=== PATIENT | male | born 1955 | race Caucasian/White ===

== ENCOUNTER 2017-07-18 18:40 | Observation (INO) | payer BC ==
--- NOTE | 2017-07-18 19:08 | RAD ---
FRONTAL VIEW CHEST: INDICATIONS: Chest pain. COMPARISON: None. FINDINGS: There is reticulonodular density at the lateral left mid to lower lung zone. There is ectasia of the thoracic aorta. The cardiac silhouette is at the upper limits of normal in size. Osseous degenerat cameron change is present. There is no pleural effusion or pneumothorax. IMPRESSION: Reticulonodular density at the lateral left mid to inferior lung zone. This may relate to an area of atelectasis or scar. The possibility of a small underlying nodule cannot be entirely excluded. The refore, recommend four to six week follow-up two view chest series to confirm resolution. POS: TAY
[2017-07-18 19:14] LABS: #Basophils 0.1 thou/uL (0.0-0.2); #Eosinphils 0.1 thou/uL (0.0-0.7); #Lymphocytes 2.2 thou/uL (1.20-3.40); #Neutrophils 5.4 thou/uL (1.40-6.50); %Basophils 0.6 % (0.0-1.0); %Lymphocytes 25.1 % (21.0-51.0); %Monocytes 11.8 % (0.0-10.0); %Neutrophils 61.6 % (42.0-75.0); Hemoglobin 15.2 g/dL (14.0-18.0); Mean Corpuscular HGB CONC 34.7 g/dL (32.0-36.0); Mean Corpuscular Volume 92.3 fl (80.0-94.0); Mean Platelet Volume 7.1 fL (7.4-10.4); Platelet Count 213 thou/uL (130-400); RBC Distribution Width 11.8 % (11.5-14.5); Red Blood Cell (RBC) Count 4.76 mill/uL (4.70-6.10); White Blood Cell (WBC) Count 8.7 thou/uL (4.8-10.8)
[2017-07-18 19:33] LABS: ALT (SGPT) 17 U/L (8-55); AST (SGOT) 17 U/L (5-34); Albumin 4.4 g/dL (3.4-4.8); Alkaline Phosphatase 78 U/L (40-150); Anion Gap 14 mmol/L (10-20); BUN (Urea Nitrogen) 32 mg/dL (8.4-25.7); Bilirubin, Total 1.4 mg/dL (0.2-1.2); CK (CPK) 39 U/L (30-200); Calc. Creatinine Clearance 0 mL/min (70-130); Calcium 9.8 mg/dL (7.8-10.44); Carbon Dioxide 27 mmol/L (23-31); Chloride 103 mmol/L (98-107); Estimated GFR-MDRD 33; Globulin 3.4 g/dL (2.4-3.5); Glucose 114 mg/dL (80-115); Potassium 4.1 mmol/L (3.5-5.1); Protein, Total 7.8 g/dL (5.8-8.1); Sodium 140 mmol/L (136-145)
[2017-07-18 19:37] LABS: CKMB 0.7 ng/mL (0-6.6); Troponin I Less than 0.010 ng/mL (< 0.028)
[2017-07-18] MEDS ORDERED: Acetaminophen 325 MG TAB ONE (22:02)
[2017-07-18] MEDS ORDERED: Azithromycin 500 MG VIAL ONE (22:15)
[2017-07-18] MEDS ORDERED: Acetaminophen 325 MG TAB PO PRN (22:44)
[2017-07-18 23:34] LABS: Troponin I Less than 0.010 ng/mL (< 0.028)
[2017-07-19] MEDS ORDERED: Bisacodyl 5 MG TAB PO PRN (01:37)
[2017-07-19] MEDS ORDERED: Bisacodyl 10 MG SUPP PR PRN (01:37)
[2017-07-19] MEDS ORDERED: Senokot 8.6 MG TAB PO PRN (01:37)
[2017-07-19] MEDS: Sodium Chloride 0.9% 1,000 ML IV SCH ×3 (01:53→23:10)
[2017-07-19 02:20] LABS: #Basophils 0.1 thou/uL (0.0-0.2); #Eosinphils 0.1 thou/uL (0.0-0.7); #Lymphocytes 2.5 thou/uL (1.20-3.40); #Monocytes 0.9 thou/uL (0.11-0.59); #Neutrophils 4.7 thou/uL (1.40-6.50); %Basophils 0.7 % (0.0-1.0); %Eosinophils 1.6 % (0.0-10.0); %Lymphocytes 30.4 % (21.0-51.0); %Monocytes 10.7 % (0.0-10.0); %Neutrophils 56.5 % (42.0-75.0); Hemoglobin 14.6 g/dL (14.0-18.0); Mean Corpuscular HGB CONC 34.4 g/dL (32.0-36.0); Mean Corpuscular Hemoglobin 31.8 pg (27.0-31.0); Mean Corpuscular Volume 92.6 fl (80.0-94.0); Mean Platelet Volume 6.8 fL (7.4-10.4); Platelet Count 201 thou/uL (130-400); RBC Distribution Width 11.7 % (11.5-14.5); Red Blood Cell (RBC) Count 4.58 mill/uL (4.70-6.10); White Blood Cell (WBC) Count 8.2 thou/uL (4.8-10.8)
[2017-07-19 02:40] LABS: Troponin I Less than 0.010 ng/mL (< 0.028)
[2017-07-19 03:01] LABS: Anion Gap 11 mmol/L (10-20); BUN (Urea Nitrogen) 34 mg/dL (8.4-25.7); Calc. Creatinine Clearance 51 mL/min (70-130); Calcium 9.3 mg/dL (7.8-10.44); Carbon Dioxide 25 mmol/L (23-31); Cardiac Risk 3.6 (Less than 4.5); Chloride 108 mmol/L (98-107); Cholesterol 182 mg/dl (< 200 Desired); Estimated GFR-MDRD 41; Glucose 103 mg/dL (80-115); HDL Cholesterol 51 mg/dL (>60 Neg Risk); LDL Cholesterol, Calculated 114 mg/dL; Potassium 4.1 mmol/L (3.5-5.1); Sodium 140 mmol/L (136-145); Triglycerides 87 mg/dL (Less than 150)
[2017-07-19] MEDS: Levothyroxine Sodium 100 MCG TAB PO SCH (05:07)
--- NOTE | 2017-07-19 05:35 | HP ---
PRIMARY CARE PHYSICIAN: Who is currently out of town. CHIEF COMPLAINT: Chest pain. HISTORY OF PRESENT ILLNESS: This is a 62-year-old male with a known history of hypertension, hyperlipidemia, hypothyroidism, and hepatitis who presents with a chief complaint of chest pain, this approximately 3 days in duration. He describes a pleuritic type of pain that was initially centrally to the left, which has subsequently radiated to the left chest wall quite far to the side and resides in the left lower chest wall. It appears to be intermittent in nature, not aggravated or alleviated by any positional changes. 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 REVIEW OF SYSTEMS: As per HPI. Constitutional: No recent fevers or chills or significant weight loss or gain. HEENT: No recent issues with lightheadedness , dizziness, headaches, or vision changes. Cardiovascular: As described in the HPI. Denies any left-sided arm numbness or tingling. Respiratory: No accompanying shortness of breath. No cough, no dyspnea with exertion. Gastrointestinal: Denies any nausea, vomiting, abdominal pain, diarrhea, or constipation. Reports irritate appetite. Genitourinary: Denies any dysuria or changes in urinary color, quantity or odor. Musculoskeletal: No new myalgias or arthralgias. Remainder of the review of systems otherwise negative. PAST MEDICAL HISTORY: As per HPI above includes; 1. Hypertension. 2. Hyperlipidemia. 3. Hypothyroidism. 4. Gastroesophageal reflux disease. 5. Prior history of asthma. PAST SURGICAL HISTORY: 1. Status post hernia repair 2. Status post right ankle surgery. HOME MEDICATIONS: As per HPI. The patient takes atorvastatin, bisoprolol- hydrochlorothiazide, lovastatin, levothyroxine, Prilosec. Patient states that within the last few weeks, his PCP has increased his bisoprolol- hydrochlorothiazide in doubled dosing to his current everyday dose. Otherwise, denies any new crhl-fcx-cilxtyt medications, herbal medication, supplements, or vitamins. ALLERGIES: No known drug allergies. FAMILY HISTORY: Denies any known family history of cardiovascular disease. SOCIAL HISTORY: Occasionally, he drinks in most case, 2-3 drinks per day. No tobacco use. The patient wishes to be FULL CODE at this point in time. PHYSICAL EXAMINATION: GENERAL: The patient is awake, alert, appropriate, in no acute distress, lying in the hospital bed. HEENT: Normocephalic, atraumatic. Moist mucous membranes. Equal ocular motions are intact. CARDIOVASCULAR: S1, S2. No murmurs, rubs, or gallops. Pulses 2+ bilateral upper extremities and lower extremities, no pitting pedal edema. RESPIRATORY: Reasonable air movement. No conversational dyspnea. No wheezes, rales, or rhonchi. Clear to auscultation bilaterally. ABDOMEN: Positive bowel sounds, soft, nontender to palpation. MUSCULOSKELETAL: Moving all 4 extremities and able to self reposition in the bed without difficulty or assistance. LABORATORY DATA AND IMAGING: WBC 8.7, hemoglobin 15.2, hematocrit 43.9, platelets 213,000. D-dimer 0.64. Sodium 140, potassium 4.1, chloride 103, bicarb 27, BUN 32, creatinine 2.06, glucose 114, calcium 9.8. Total bilirubin is 1.4, AST 17, ALT 17, alkaline phosphatase 78, troponin less than 0.1 x2. Total protein 7.8, albumin 4.4, lipase 19. ASSESSMENT AND PLAN: A 62-year-old male presenting with a chief complaint of chest pain. 1. Chest pain, rule out for acute coronary syndrome as the patient has known risk factors including hypertension and hyperlipidemia. Serial troponin, the patient has already obtained 2. We will repeat for a third. Check a fasting lipid panel as well. Along with differential with an elevated D-dimer for the patient's chest pains, the possibility of a PE due to the patient's acute renal insufficiency, we will be unable to utilize dye in a CTA. So, we will check a ventilation perfusion scan when possible. The patient also endorses a musculoskeletal component of reproducible pain in the area where he describes. Follow up is ruled out as this could be a residual etiology of the patient's discomfort. 2. Acute renal insufficiency without a known history of renal disease. Wonder if perhaps this is related to over diuresis as the patient has been recently fishing and out in the heat. Additionally, on top of that his hydrochlorothiazide dosing has effectively been doubled. We will hold losartan and hydrochlorothiazide. Continue to closely monitor the patient's renal function. Encourage oral hydration at this point in time. 3. Hypothyroidism. Check a TSH and continue patient's home regimen. 4. Hyperlipidemia. Check a fasting lipid panel. We will continue patient on his home regimen. 5. Hypertension, appears to be stable. Thank you for asking me to care for the patient. Questions or concerns, contact me at [facility]. JAYCE
[2017-07-19] MEDS ORDERED: hydrALAZINE 20 MG/ML VIAL SLOW IVP PRN (07:43)
[2017-07-19] MEDS ORDERED: Sodium Chloride 0.65% Nasal 44 ML BOT EA NARE PRN (07:43)
[2017-07-19] MEDS ORDERED: Loratadine 10 MG TAB PO PRN (07:43)
[2017-07-19] MEDS ORDERED: Diabetic Tussin 200 MG/10 ML UDCUP PO PRN (07:43)
[2017-07-19] MEDS ORDERED: Ondansetron HCl/PF 4 MG/2 ML Vial IVP PRN (07:43)
[2017-07-19] MEDS ORDERED: Eucerin (Mineral Oil/Petrolatum,White) 30 gm Jar TOP PRN (07:43)
[2017-07-19] MEDS ORDERED: Mag-Al 1200 mg/1200 mg/30 ML UDCUP PO PRN (07:43)
[2017-07-19] MEDS ORDERED: Ondansetron ODT 4 MG TAB PO PRN (07:43)
[2017-07-19] MEDS ORDERED: Loperamide HCl 2 MG CAP PO PRN (07:43)
[2017-07-19] MEDS ORDERED: Temazepam 15 MG CAP PO PRN (07:43)
[2017-07-19] MEDS ORDERED: HYDROcodone/Acetaminophen 5/325 mg Tablet PO PRN (07:43)
[2017-07-19] MEDS ORDERED: Artificial Tears 18 DROP/0.9 ML EA EYE PRN (07:43)
[2017-07-19] MEDS ORDERED: Non-Formulary Item 1 EACH (Losartan Potassium [Cozaar] 100 MG) PO SCH (09:00)
[2017-07-19] MEDS ORDERED: Bisoprolol Fumarate/HCTZ 10 mg/6.25 mg Tablet PO SCH (09:00)
[2017-07-19] MEDS ORDERED: Enoxaparin Sodium 40 MG/0.4 ML SYRINGE SC SCH (09:00)
--- NOTE | 2017-07-19 09:38 | ULT ---
RENAL ULTRASOUND: HISTORY: Acute kidney insufficiency. COMPARISON: None. TECHNIQUE: Sagittal and transverse imaging of the kidneys is performed. FINDINGS: There is bilateral renal cortical thinning. Bilaterally, no hydronephrosis. The right kidney measur es 11.0 x 5.0 x 5.3 cm. The left kidney measures 11.3 x 6.6 x 5.9 cm. The urinary bladder is unremarkable with a prevoid volume of 123 mm. IMPRESSION: No hydronephrosis. POS: TAY
[2017-07-19] MEDS: Famotidine 20 MG TAB PO SCH (09:43)
[2017-07-19] MEDS: Bisoprolol Fumarate 5 MG TAB PO SCH (09:43)
[2017-07-19] MEDS: Atorvastatin Calcium 20 MG TAB PO SCH (09:43)
[2017-07-19] MEDS: Enoxaparin Sodium 30 MG/0.3 ML SYRINGE SC SCH (09:43)
--- NOTE | 2017-07-19 10:48 | NM ---
NUCLEAR MEDICINE VQ SCAN: HISTORY: Elevated D-Dimer. Evaluate for pulmonary embolism. COMPARISON: None. TECHNIQUE: The patient was administered 6 mCi of Xenon gas for ventilation imaging and 6.50 mCi of Technetium 99 m-MAA for perfusion imaging. FINDINGS: Ventilation images demonstrate diffuse uptake of the radiotracer, without significant retention. Perfusion images demonstrate homogeneous distribution of the radiotracer. There are no VQ mismatches. IMPRESSION: Normal exam. POS: TAY
--- NOTE | 2017-07-19 10:57 | PDOC.PN ---
- Subjective Encounter Start Date: 07/19/17 Encounter Start Time: 07:30 -: old records requested/rev Patient seen and examined for acute kidney failure, he has right side rib cage pain. No overnight events - Objective Resuscitation Status: Resuscitation Status FULL:Full Resuscitation MAR Reviewed: Yes Vital Signs & Weight: Vital Signs (12 hours) Temp Pulse Resp BP Pulse Ox 07/19/17 08:00 99.0 F 64 14 07/19/17 07:52 99.0 F 64 14 136/92 H 94 L 07/19/17 05:07 69 18 135/83 94 L 07/19/17 01:37 96 Weight Weight 174 lb 12.8 oz Result Diagrams: 07/19/17 02:07 07/19/17 02:07 Radiology Reviewed by me: Yes (US kidney, V/Q scan) EKG Reviewed by me: Yes (NSR) Phys Exam - Physical Examination Constitutional: NAD HEENT: PERRLA, moist MMs, sclera anicteric Neck: no JVD, supple Respiratory: no wheezing, no rales, no rhonchi Cardiovascular: RRR, no significant murmur, no rub Gastrointestinal: soft, non-tender, no distention, positive bowel sounds Musculoskeletal: no edema, pulses present Neurological: non-focal, normal sensation, moves all 4 limbs Psychiatric: normal affect, A&O x 3 Skin: no rash, normal turgor Dx/Plan (1) Acute kidney failure Status: Acute (2) Chest pain Code(s): R07.9 - CHEST PAIN, UNSPECIFIED Status: Acute (3) Dyslipidemia Code(s): E78.5 - HYPERLIPIDEMIA, UNSPECIFIED Status: Chronic (4) GERD (gastroesophageal reflux disease) Code(s): K21.9 - GASTRO-ESOPHAGEAL REFLUX DISEASE WITHOUT ESOPHAGITIS Status: Chronic (5) Hypertension Code(s): I10 - ESSENTIAL (PRIMARY) HYPERTENSION Status: Chronic (6) Hypothyroidism Code(s): E03.9 - HYPOTHYROIDISM, UNSPECIFIED Status: Chronic - Plan cont current plan of care * continue IVF today * repeat labs tomorrow. * his chest pain is musculoskeletal * medication reviewed as below * symptomatic treatment * will discharge tomorrow * send UA Review of Systems - Review of Systems Eyes: negative: Pain, Vision Change, Conjunctivae Inflammation, Eyelid Inflammation, Redness, Other ENT: negative: Ear Pain, Ear Discharge, Nose Pain, Nose Discharge, Nose Congestion, Mouth Pain, Mouth Swelling, Throat Pain, Throat Swelling, Other Respiratory: negative: Cough, Dry, Shortness of Breath, Hemoptysis, SOB with Excertion, Pleuritic Pain, Sputum, Wheezing Cardiovascular: chest pain. negative: palpitations, orthopnea, paroxysmal nocturnal dyspnea, edema, light headedness, other Gastrointestinal: negative: Nausea, Vomiting, Abdominal Pain, Diarrhea, Constipation, Melena, Hematochezia, Other Genitourinary: negative: Dysuria, Frequency, Incontinence, Hematuria, Retention , Other Musculoskeletal: negative: Neck Pain, Shoulder Pain, Arm Pain, Back Pain, Hand Pain, Leg Pain, Foot Pain, Other Skin: negative: Rash, Lesions, Joe, Bruising, Other - Medications/Allergies Allergies/Adverse Reactions: Allergies Allergy/AdvReac Type Severity Reaction Status Date / Time No Known Allergies Allergy Verified 07/18/17 23:07 Medications: Current Medications Hydrocodone Bitart/Acetaminophen ([place] 5/325) 1 tab PO Q4H PRN PRN Reason: Moderate Pain (4-6) Al Hydroxide/Mg Hydroxide (Maalox) 15 ml PO Q4H PRN PRN Reason: Heartburn or Indigestion Artificial Tears (Tears Naturale) 0 drop EA EYE PRN PRN PRN Reason: Dry Eyes Atorvastatin Calcium (Lipitor) 20 mg PO DAILY [facility] Last Admin: 07/19/17 09:43 Dose: 20 mg Bisacodyl (Dulcolax) 10 mg PO DAILYPRN PRN PRN Reason: Constipation Bisacodyl (Dulcolax) 10 mg ID Q24H PRN PRN Reason: Constipation Bisoprolol Fumarate (Zebeta) 5 mg PO DAILY [facility] Last Admin: 07/19/17 09:43 Dose: 5 mg Enoxaparin Sodium (Lovenox) 30 mg SC 0900 [facility] Last Admin: 07/19/17 09:43 Dose: 30 mg Famotidine (Pepcid) 20 mg PO DAILY [facility] Last Admin: 07/19/17 09:43 Dose: 20 mg Guaifenesin (Robitussin Sf) 200 mg PO Q4H PRN PRN Reason: Cough Hydralazine HCl (Apresoline) 10 mg SLOW IVP Q4H PRN PRN Reason: Systolic BP > 180 Sodium Chloride (Normal Saline 0.9%) 1,000 mls @ 100 mls/hr IV .Q10H [facility] Last Admin: 07/19/17 01:53 Dose: 1,000 mls Levothyroxine Sodium (Synthroid) 100 mcg PO 0600 [facility] Last Admin: 07/19/17 05:07 Dose: 100 mcg Loperamide HCl (Imodium) 2 mg PO PRN PRN PRN Reason: Diarrhea/Loose Stools Loratadine (Claritin) 10 mg PO DAILYPRN PRN PRN Reason: Sinus Symptoms Mineral Oil/White Petrolatum (Eucerin Cream) 0 gm TOP BIDPRN PRN PRN Reason: Dry Skin Ondansetron HCl (Zofran Odt) 4 mg PO Q6H PRN PRN Reason: Nausea/Vomiting Ondansetron HCl (Zofran) 4 mg IVP Q6H PRN PRN Reason: Nausea/Vomiting Pantoprazole Sodium (Protonix) 40 mg PO DAILY [facility] Last Admin: 07/19/17 09:43 Dose: 40 mg Senna (Senokot) 2 tab PO HSPRN PRN PRN Reason: Constipation Sodium Chloride ([place] Nasal [place] 0.65%) 0 ml EA NARE QIDPRN PRN PRN Reason: Nasal Congestion Temazepam (Restoril) 15 mg PO HSPRN PRN PRN Reason: Insomnia
[2017-07-19 11:37] LABS: Bilirubin Negative (Negative); Blood, Urine Small (Negative); Clarity CLEAR (Clear); Glucose, Urine (Dipstick) Negative (Negative); Leukocyte Negative (Negative); Nitrite Negative (Negative); Protein, Urine (Dipstick) Negative (Neg-Trace); Specific Gravity, Urine 1.015 (1.002-1.036); Urobilinogen 0.2 mg/dL (0.2-1.0); pH, Urine 5.5 (5.0-9.0)
[2017-07-19 11:41] LABS: Bacteria/HPF None Seen HPF (None Seen); Hyaline Casts/LPF 0-3 HYALINE CAST LPF (0-3 Hyaline); Pathc Cast-AUWi Flag 0.43 (0-2.49); RBC/HPF 0-3 HPF (0-3); Squamous Epithelial None Seen HPF (0-3); WBC/HPF 0-3 HPF (0-3)
[2017-07-19] MEDS: Acetaminophen 325 MG TAB PO PRN ×2 (18:42→23:54)
[2017-07-19] MEDS ORDERED: Simethicone Chewable 80 MG TAB PO PRN (23:46)
[2017-07-20] MEDS: Levothyroxine Sodium 100 MCG TAB PO SCH (04:19)
[2017-07-20 04:35] LABS: #Basophils 0.1 thou/uL (0.0-0.2); #Eosinphils 0.2 thou/uL (0.0-0.7); #Lymphocytes 3.5 thou/uL (1.20-3.40); #Monocytes 0.6 thou/uL (0.11-0.59); #Neutrophils 3.6 thou/uL (1.40-6.50); %Basophils 0.9 % (0.0-1.0); %Eosinophils 2.6 % (0.0-10.0); %Lymphocytes 43.7 % (21.0-51.0); %Monocytes 7.8 % (0.0-10.0); %Neutrophils 45.1 % (42.0-75.0); Hemoglobin 13.3 g/dL (14.0-18.0); Mean Corpuscular HGB CONC 34.1 g/dL (32.0-36.0); Mean Corpuscular Hemoglobin 31.8 pg (27.0-31.0); Mean Corpuscular Volume 93.2 fl (80.0-94.0); Mean Platelet Volume 6.6 fL (7.4-10.4); Platelet Count 206 thou/uL (130-400); RBC Distribution Width 11.4 % (11.5-14.5); Red Blood Cell (RBC) Count 4.18 mill/uL (4.70-6.10); White Blood Cell (WBC) Count 8.1 thou/uL (4.8-10.8)
[2017-07-20 04:56] LABS: Anion Gap 9 mmol/L (10-20); BUN (Urea Nitrogen) 21 mg/dL (8.4-25.7); Calc. Creatinine Clearance 66 mL/min (70-130); Calcium 8.7 mg/dL (7.8-10.44); Carbon Dioxide 27 mmol/L (23-31); Chloride 109 mmol/L (98-107); Estimated GFR-MDRD 55; Glucose 99 mg/dL (80-115); Potassium 4.7 mmol/L (3.5-5.1); Sodium 140 mmol/L (136-145)
[2017-07-20 08:00] VITALS: BP 151/86; TEMP 98.3
[2017-07-20] MEDS ORDERED: Lisinopril 2.5 MG TAB PO SCH (09:00)
[2017-07-20] MEDS ORDERED: Aspirin 81 mg Enteric Coated Tablet PO SCH (09:00)
[2017-07-20] MEDS ORDERED: Carvedilol 3.125 MG TAB PO SCH (09:00)
[2017-07-20] MEDS: Sodium Chloride 0.9% 1,000 ML IV SCH (09:18)
[2017-07-20] MEDS: Bisoprolol Fumarate 5 MG TAB PO SCH (09:31)
[2017-07-20] MEDS: Famotidine 20 MG TAB PO SCH (09:32)
[2017-07-20] MEDS: Atorvastatin Calcium 20 MG TAB PO SCH (09:32)
[2017-07-20] MEDS: Enoxaparin Sodium 30 MG/0.3 ML SYRINGE SC SCH (09:33)
--- NOTE | 2017-07-20 09:48 | PDOC.PN ---
- Subjective Encounter Start Date: 07/20/17 Encounter Start Time: 07:35 Patient seen and examined for acute kidney failure. No new complaints. No overnight events - Objective Resuscitation Status: Resuscitation Status FULL:Full Resuscitation MAR Reviewed: Yes Vital Signs & Weight: Vital Signs (12 hours) Temp Pulse Resp BP BP Pulse Ox 07/20/17 08:15 98.3 F 57 L 16 07/20/17 07:26 98.3 F 57 L 16 151/86 H 97 07/20/17 04:00 99.0 F 60 20 140/74 95 07/20/17 02:06 96 Weight Weight 174 lb 12.8 oz I&O: 07/19/17 07/20/17 07/21/17 06:59 06:59 06:59 Intake Total 2826 Output Total 1505 Balance 1321 Result Diagrams: 07/20/17 04:19 07/20/17 04:19 Radiology Reviewed by me: Yes (v/q scan normal) EKG Reviewed by me: Yes (nsr) Phys Exam - Physical Examination Constitutional: NAD HEENT: PERRLA, moist MMs, sclera anicteric Neck: no JVD, supple Respiratory: no wheezing, no rales, no rhonchi Cardiovascular: RRR, no significant murmur, no rub Gastrointestinal: soft, non-tender, no distention, positive bowel sounds Musculoskeletal: no edema, pulses present Neurological: non-focal, normal sensation, moves all 4 limbs Lymphatic: no nodes Psychiatric: normal affect, A&O x 3 Skin: no rash, normal turgor Dx/Plan (1) Acute kidney failure Status: Acute (2) Chest pain Code(s): R07.9 - CHEST PAIN, UNSPECIFIED Status: Acute Qualifiers: Chest pain type: other chest pain Qualified Code(s): R07.89 - Other chest pain; R07.8 - Other chest pain Comment: muskuloskeletal (3) Dyslipidemia Code(s): E78.5 - HYPERLIPIDEMIA, UNSPECIFIED Status: Chronic (4) GERD (gastroesophageal reflux disease) Code(s): K21.9 - GASTRO-ESOPHAGEAL REFLUX DISEASE WITHOUT ESOPHAGITIS Status: Chronic (5) Hypertension Code(s): I10 - ESSENTIAL (PRIMARY) HYPERTENSION Status: Chronic (6) Hypothyroidism Code(s): E03.9 - HYPOTHYROIDISM, UNSPECIFIED Status: Chronic (7) Combined systolic and diastolic cardiac dysfunction Code(s): I51.89 - OTHER ILL-DEFINED HEART DISEASES Status: Acute - Plan cont current plan of care * renal function improved * resume home meds and follow up with PCP * medication reviewed as below * symptomatic treatment * see discharge tamie. Review of Systems - Review of Systems ENT: negative: Ear Pain, Ear Discharge, Nose Pain, Nose Discharge, Nose Congestion, Mouth Pain, Mouth Swelling, Throat Pain, Throat Swelling, Other Respiratory: negative: Cough, Dry, Shortness of Breath, Hemoptysis, SOB with Excertion, Pleuritic Pain, Sputum, Wheezing Cardiovascular: negative: chest pain, palpitations, orthopnea, paroxysmal nocturnal dyspnea, edema, light headedness, other Gastrointestinal: negative: Nausea, Vomiting, Abdominal Pain, Diarrhea, Constipation, Melena, Hematochezia, Other Genitourinary: negative: Dysuria, Frequency, Incontinence, Hematuria, Retention , Other Musculoskeletal: negative: Neck Pain, Shoulder Pain, Arm Pain, Back Pain, Hand Pain, Leg Pain, Foot Pain, Other Skin: negative: Rash, Lesions, Joe, Bruising, Other - Medications/Allergies Allergies/Adverse Reactions: Allergies Allergy/AdvReac Type Severity Reaction Status Date / Time No Known Allergies Allergy Verified 07/18/17 23:07 Medications: Current Medications Acetaminophen (Tylenol) 650 mg PO Q4H PRN PRN Reason: Pain Last Admin: 07/19/17 23:54 Dose: 650 mg Hydrocodone Bitart/Acetaminophen ([place] 5/325) 1 tab PO Q4H PRN PRN Reason: Moderate Pain (4-6) Al Hydroxide/Mg Hydroxide (Maalox) 15 ml PO Q4H PRN PRN Reason: Heartburn or Indigestion Last Admin: 07/19/17 20:30 Dose: 15 ml Artificial Tears (Tears Naturale) 0 drop EA EYE PRN PRN PRN Reason: Dry Eyes Aspirin (Ecotrin) 81 mg PO DAILY [facility] Last Admin: 07/20/17 09:32 Dose: 81 mg Atorvastatin Calcium (Lipitor) 20 mg PO DAILY [facility] Last Admin: 07/20/17 09:32 Dose: 20 mg Bisacodyl (Dulcolax) 10 mg PO DAILYPRN PRN PRN Reason: Constipation Bisacodyl (Dulcolax) 10 mg SC Q24H PRN PRN Reason: Constipation Bisoprolol Fumarate (Zebeta) 5 mg PO DAILY [facility] Last Admin: 07/20/17 09:31 Dose: 5 mg Enoxaparin Sodium (Lovenox) 30 mg SC 0900 [facility] Last Admin: 07/20/17 09:33 Dose: Not Given Famotidine (Pepcid) 20 mg PO DAILY [facility] Last Admin: 07/20/17 09:32 Dose: 20 mg Guaifenesin (Robitussin Sf) 200 mg PO Q4H PRN PRN Reason: Cough Hydralazine HCl (Apresoline) 10 mg SLOW IVP Q4H PRN PRN Reason: Systolic BP > 180 Sodium Chloride (Normal Saline 0.9%) 1,000 mls @ 100 mls/hr IV .Q10H [facility] Last Admin: 07/20/17 09:18 Dose: Not Given Levothyroxine Sodium (Synthroid) 100 mcg PO 0600 [facility] Last Admin: 07/20/17 04:19 Dose: 100 mcg Loperamide HCl (Imodium) 2 mg PO PRN PRN PRN Reason: Diarrhea/Loose Stools Loratadine (Claritin) 10 mg PO DAILYPRN PRN PRN Reason: Sinus Symptoms Mineral Oil/White Petrolatum (Eucerin Cream) 0 gm TOP BIDPRN PRN PRN Reason: Dry Skin Ondansetron HCl (Zofran Odt) 4 mg PO Q6H PRN PRN Reason: Nausea/Vomiting Ondansetron HCl (Zofran) 4 mg IVP Q6H PRN PRN Reason: Nausea/Vomiting Pantoprazole Sodium (Protonix) 40 mg PO DAILY [facility] Last Admin: 07/20/17 09:32 Dose: 40 mg Senna (Senokot) 2 tab PO HSPRN PRN PRN Reason: Constipation Simethicone (Mylicon Chewable) 80 mg PO HSPRN PRN PRN Reason: GAS PAIN Last Admin: 07/19/17 23:55 Dose: 80 mg Sodium Chloride ([place] Nasal [place] 0.65%) 0 ml EA NARE QIDPRN PRN PRN Reason: Nasal Congestion Temazepam (Restoril) 15 mg PO HSPRN PRN PRN Reason: Insomnia
--- NOTE | 2017-07-20 10:56 | DIS ---
DATE OF ADMISSION: 07/18/2017 DATE OF DISCHARGE: 07/20/2017 PRIMARY CARE PHYSICIAN: [facility] call admission. DISCHARGE DISPOSITION: Home. PRIMARY DISCHARGE DIAGNOSES: Acute kidney failure, prerenal, improved; chest pain due to musculoskel etal etiology; combined systolic and diastolic dysfunction. SECONDARY DISCHARGE DIAGNOSES: Hypothyroidism, hypertension, gastroesophageal reflux disease, dyslip idemia. PRIMARY PROCEDURE AND OPERATION: None. RADIOLOGICAL INVESTIGATION: Chest x-ray normal. Ventilation perfusion scan, normal. Renal ultrasou nd was normal. Echocardiography showed EF 40%-45% and diastolic dysfunction. SIGNIFICANT LABORATORY DATA: WBC 8.1, hemoglobin 13.3, platelet 206. D-dimer 0.64. Sodium 140, cre atinine 1.32, LDL 114. Cardiac enzymes negative x3. Lipase 19. TSH 1.31. Urinalysis normal. DISCHARGE MEDICATIONS: The patient will continue all his previous medications. New medications: As pirin 81 mg p.o. daily, Tylenol #3 one to two tablets q.6 hourly p.r.n. for pain. Continue following medications: Lipitor 20 mg p.o. daily, bisoprolol with hydrochlorothiazide one tablet p.o. daily, S ynthroid 100 mcg p.o. daily, losartan 100 mg p.o. daily, omeprazole 20 mg p.o. daily. CONTRAINDICATIONS: None. CODE STATUS: FULL CODE. INPATIENT CONSULTANTS: None. ALLERGIES: No known drug allergy. DISCHARGE PLAN: Post hospital, the patient will follow up with primary care physician in 1 week. Th e patient is advised to follow up with primary care physician and schedule an outpatient stress test if needed. HOSPITAL COURSE: The patient is a 62-year-old male who was admitted by Dr. Baca. Please see her H&P for further detail. On admission, he was complaining of chest pain which was predominantly movement related pain and his description of chest pain was consistent with musculoskeletal/rib cage pain. W e did observe in the hospital and did serial cardiac enzymes, which are negative. His EKG was normal . He had slightly elevated D-dimer and that is why we did a ventilation perfusion scan because the p atient had acute kidney failure on admission. Ventilation perfusion scan was normal. His descriptio n was also not any thromboembolic disorder. He was on room air and without any tachycardia. In this way, we completely ruled out cardiac etiology as well as thromboembolic disorder. His pain was cont rolled with pain medicine. We prescribed Tylenol #3 for pain. We advised him to avoid NSAID. While in hospital, he had acute kidney failure with a creatinine of 2.06. He was hydrated with IV fluid a nd today his creatinine is 1.32. We resumed all his previous medications. Echocardiography showed s ystolic and diastolic dysfunction, but he is already on bisoprolol as well as losartan, which he will continue as an outpatient basis. The patient is seen and examined at bedside today. He was asking me to give work excuse until 2017, which was given per his request. Otherwise, the patient is medically stable for discharge. Pl ease see my progress note from today for further detail.
== END 2017-07-20 10:56 | disposition home or self-care (01) ==
LOC: ERS 18:40 → 2SW 21:41
PROVIDERS: ADMIT Internal Medicine; ATTEND Internal Medicine
DX: R07.89 Other chest pain (principal); N17.9 Acute kidney failure, unspecified; E03.9 Hypothyroidism, unspecified; I11.9 Hypertensive heart disease without heart failure; K21.9 Gastro-esophageal reflux disease without esophagitis; E78.5 Hyperlipidemia, unspecified; Z79.899 Other long term (current) drug therapy; Z79.82 Long term (current) use of aspirin
CPT/HCPCS: 36415; 71045; 76770; 78582; 80048; 80053; 80061; 81001; 82550; 82553; 83690; 84443; 84484; 85025; 85379; 93005; 93306; 94760; 96361; 96365; 96372; 96374; 96375; A9540; A9558; G0378; J0456; J1650